=== PATIENT | male | born 1930 | race Caucasian/White ===

== ENCOUNTER 2016-10-16 09:59 | Inpatient (IN) | payer MEDICARE, BC ==
[~2016-10-16] VITALS: Ht 167.6 cm; Wt 79.3 kg
[2016-10-16] MEDS ORDERED: SALINE FLUSH 10 ML FLUSH PRN (10:15)
[2016-10-16] MEDS ORDERED: BISACODYL EC 5 MG TAB PO PRN (10:15)
[2016-10-16] MEDS ORDERED: ACETAMINOPHEN 325 MG TAB PO PRN ×2 (10:15→16:30)
[2016-10-16 11:00] VITALS: Ht 167.6 cm; Wt 79.3 kg
[2016-10-16] MEDS: PANTOPRAZOLE 40 MG TAB PO SCH (11:00)
[2016-10-16 11:01] VITALS: BP_SYST 135; RESP 18; TEMP 97.8
[2016-10-16] MEDS ORDERED: METOPROLOL XL 25 MG TAB PO SCH ×2 (11:15→21:00)
[2016-10-16 16:34] VITALS: BP_SYST 133; TEMP 97.9
[2016-10-16 16:35] VITALS: RESP 20
[2016-10-16 19:53] VITALS: BP_SYST 134; RESP 17; TEMP 97.7
[2016-10-16] MEDS: METHYLPRED SOD SUCC 40 MG VIAL IV SCH (19:58)
[2016-10-16] MEDS: SALINE FLUSH 10 ML FLUSH SCH (19:58)
[2016-10-16] MEDS: PRAVASTATIN 40 MG TAB PO SCH (20:23)
[2016-10-16] MEDS: TAMSULOSIN 0.4 MG CAP PO SCH (20:23)
[2016-10-16] MEDS ORDERED: QUEtiapine 25 MG TAB PO SCH (21:00)
[2016-10-16 23:27] VITALS: BP_SYST 113; RESP 17; TEMP 98
[2016-10-17 03:48] VITALS: BP_SYST 97; RESP 18; TEMP 98
[2016-10-17] MEDS: OMNIPAQUE 240 MG/ML, 50 ML PO SCH ×2 (04:04→06:02)
[2016-10-17] MEDS: SODIUM CHLORIDE 0.9% FLUSH BAG 500 ML IV SCH (06:00)
[2016-10-17] MEDS: PANTOPRAZOLE 40 MG TAB PO SCH (06:01)
[2016-10-17 07:34] VITALS: BP_SYST 120; RESP 18; TEMP 97.2
[2016-10-17] MEDS ORDERED: OPTIRAY 350 100 ML VIAL HMH IV ONE (08:39)
[2016-10-17] MEDS: SALINE FLUSH 10 ML FLUSH SCH ×2 (09:00→21:05)
[2016-10-17] MEDS ORDERED: METOPROLOL XL 25 MG TAB PO SCH (09:00)
[2016-10-17] MEDS: METHYLPRED SOD SUCC 40 MG VIAL IV SCH (09:00)
[2016-10-17] MEDS: PYRIDOXINE HCL 50 MG TAB PO SCH (09:14)
[2016-10-17] MEDS: ASPIRIN EC 325 MG TAB PO SCH (09:14)
[2016-10-17] MEDS: CYANOCOBALAMIN 100 MCG TAB PO SCH (09:14)
[2016-10-17] MEDS ORDERED: GLUCAGON 1 MG VIAL IM PRN (09:40)
[2016-10-17] MEDS ORDERED: DEXTROSE 50% SYRINGE 50 ML IV PRN (09:40)
[2016-10-17] MEDS: LISINOPRIL 5 MG TAB PO SCH (09:51)
[2016-10-17 11:44] VITALS: BP_SYST 131; RESP 18; TEMP 97.5
[2016-10-17 15:52] VITALS: BP_SYST 112; RESP 18; TEMP 97.7
[2016-10-17 20:15] VITALS: BP_SYST 115; RESP 18; TEMP 97.5
[2016-10-17] MEDS ORDERED: QUEtiapine 25 MG TAB PO SCH (21:00)
[2016-10-17] MEDS: PRAVASTATIN 40 MG TAB PO SCH (21:05)
[2016-10-17] MEDS: APIXABAN 2.5 MG TAB PO SCH (21:05)
[2016-10-17] MEDS: SOTALOL HCL 80 MG TAB PO SCH (21:05)
[2016-10-17] MEDS: TAMSULOSIN 0.4 MG CAP PO SCH (21:05)
[2016-10-17 23:46] VITALS: BP_SYST 119; RESP 18; TEMP 97.6
[2016-10-18] MEDS: SODIUM CHLORIDE 0.9% FLUSH BAG 500 ML IV SCH (00:48)
[2016-10-18 05:30] VITALS: BP_SYST 115; RESP 18; TEMP 97.8
[2016-10-18] MEDS: PANTOPRAZOLE 40 MG TAB PO SCH (06:35)
[2016-10-18 07:29] VITALS: BP_SYST 123; RESP 18; TEMP 97.6
[2016-10-18] MEDS ORDERED: MISSING DOSE XX ONE (08:30)
[2016-10-18] MEDS: APIXABAN 2.5 MG TAB PO SCH ×2 (09:37→21:08)
[2016-10-18] MEDS: CYANOCOBALAMIN 100 MCG TAB PO SCH (09:37)
[2016-10-18] MEDS: LISINOPRIL 5 MG TAB PO SCH (09:37)
[2016-10-18] MEDS: SOTALOL HCL 80 MG TAB PO SCH ×2 (09:37→21:08)
[2016-10-18] MEDS: ASPIRIN EC 325 MG TAB PO SCH (09:37)
[2016-10-18] MEDS: PYRIDOXINE HCL 50 MG TAB PO SCH (09:37)
[2016-10-18] MEDS: METHYLPRED SOD SUCC 40 MG VIAL IV SCH ×3 (09:39→21:07)
[2016-10-18] MEDS: SALINE FLUSH 10 ML FLUSH SCH ×2 (09:43→21:07)
[2016-10-18 11:03] VITALS: BP_SYST 98; RESP 18; TEMP 97.4
[2016-10-18 16:04] VITALS: BP_SYST 108; RESP 18; TEMP 97.2
[2016-10-18 19:00] VITALS: BP_SYST 132; RESP 18; TEMP 97.5
[2016-10-18] MEDS: TAMSULOSIN 0.4 MG CAP PO SCH (21:08)
[2016-10-18] MEDS: PRAVASTATIN 40 MG TAB PO SCH (21:08)
[2016-10-18 23:51] VITALS: BP_SYST 129; BP_SYST 138; RESP 20; TEMP 97.6; TEMP 97.7
[2016-10-19 03:32] VITALS: BP_SYST 115; RESP 18; TEMP 97.8
[2016-10-19] MEDS: SODIUM CHLORIDE 0.9% FLUSH BAG 500 ML IV SCH (04:37)
[2016-10-19] MEDS: PANTOPRAZOLE 40 MG TAB PO SCH (06:01)
[2016-10-19] MEDS: METHYLPRED SOD SUCC 40 MG VIAL IV SCH ×2 (08:21→20:14)
[2016-10-19] MEDS: PYRIDOXINE HCL 50 MG TAB PO SCH (08:22)
[2016-10-19] MEDS: SOTALOL HCL 80 MG TAB PO SCH ×2 (08:22→20:14)
[2016-10-19] MEDS: APIXABAN 2.5 MG TAB PO SCH ×2 (08:22→20:14)
[2016-10-19] MEDS: LISINOPRIL 2.5 MG TAB PO SCH (08:23)
[2016-10-19] MEDS: CYANOCOBALAMIN 100 MCG TAB PO SCH (08:23)
[2016-10-19] MEDS: SALINE FLUSH 10 ML FLUSH SCH ×2 (08:24→22:37)
[2016-10-19] MEDS: ASPIRIN EC 81 MG TAB PO SCH (08:24)
[2016-10-19 08:25] VITALS: BP_SYST 139; RESP 17; TEMP 98
[2016-10-19 12:03] VITALS: BP_SYST 130; RESP 18; TEMP 97.5
[2016-10-19 16:56] VITALS: BP_SYST 150; RESP 19; TEMP 97.6
[2016-10-19 19:44] VITALS: BP_SYST 118; RESP 18; TEMP 97.6
[2016-10-19] MEDS: PRAVASTATIN 40 MG TAB PO SCH (20:14)
[2016-10-19] MEDS: TAMSULOSIN 0.4 MG CAP PO SCH (20:14)
[2016-10-19 22:53] VITALS: BP_SYST 91; RESP 18; TEMP 97.9
[2016-10-20] MEDS: SODIUM CHLORIDE 0.9% FLUSH BAG 500 ML IV SCH ×2 (01:29→19:32)
[2016-10-20 03:18] VITALS: BP_SYST 110; RESP 18; TEMP 97.7
[2016-10-20] MEDS: PANTOPRAZOLE 40 MG TAB PO SCH (06:23)
[2016-10-20] MEDS: SOTALOL HCL 80 MG TAB PO SCH ×2 (08:22→20:11)
[2016-10-20] MEDS: PYRIDOXINE HCL 50 MG TAB PO SCH (08:22)
[2016-10-20] MEDS: APIXABAN 2.5 MG TAB PO SCH ×2 (08:22→20:11)
[2016-10-20] MEDS: CYANOCOBALAMIN 100 MCG TAB PO SCH (08:22)
[2016-10-20] MEDS: METHYLPRED SOD SUCC 40 MG VIAL IV SCH ×2 (08:22→20:10)
[2016-10-20] MEDS: ASPIRIN EC 81 MG TAB PO SCH (08:22)
[2016-10-20] MEDS: SALINE FLUSH 10 ML FLUSH SCH ×2 (08:23→20:10)
[2016-10-20] MEDS: LISINOPRIL 2.5 MG TAB PO SCH (08:24)
[2016-10-20 08:29] VITALS: BP_SYST 134; RESP 20; TEMP 97.8
[2016-10-20 11:47] VITALS: BP_SYST 131; RESP 19; TEMP 98.5
[2016-10-20 16:05] VITALS: BP_SYST 123; RESP 20; TEMP 98.1
[2016-10-20 19:17] VITALS: BP_SYST 115; RESP 17; TEMP 98
[2016-10-20] MEDS: TAMSULOSIN 0.4 MG CAP PO SCH (20:11)
[2016-10-20] MEDS: PRAVASTATIN 40 MG TAB PO SCH (20:11)
[2016-10-20 23:21] VITALS: BP_SYST 123; RESP 18; TEMP 97.7
[2016-10-21] VITALS (9 sets, daily range): BP systolic 115–155; RESP 18–20; TEMP 97.5–98.2
[2016-10-21] MEDS: PANTOPRAZOLE 40 MG TAB PO SCH (06:28)
[2016-10-21] MEDS: SALINE FLUSH 10 ML FLUSH SCH ×2 (08:15→20:28)
[2016-10-21] MEDS: APIXABAN 2.5 MG TAB PO SCH ×2 (08:15→20:28)
[2016-10-21] MEDS: LISINOPRIL 2.5 MG TAB PO SCH (08:15)
[2016-10-21] MEDS: PYRIDOXINE HCL 50 MG TAB PO SCH (08:15)
[2016-10-21] MEDS: SOTALOL HCL 80 MG TAB PO SCH ×2 (08:15→20:28)
[2016-10-21] MEDS: METHYLPRED SOD SUCC 40 MG VIAL IV SCH ×2 (08:15→20:28)
[2016-10-21] MEDS: CYANOCOBALAMIN 100 MCG TAB PO SCH (08:16)
[2016-10-21] MEDS: PRAVASTATIN 40 MG TAB PO SCH (20:28)
[2016-10-21] MEDS: TAMSULOSIN 0.4 MG CAP PO SCH (20:28)
[2016-10-21] MEDS: SODIUM CHLORIDE 0.9% FLUSH BAG 500 ML IV SCH (23:27)
[2016-10-22 03:56] VITALS: BP_SYST 123; RESP 18; TEMP 97.8
[2016-10-22] MEDS: PANTOPRAZOLE 40 MG TAB PO SCH (06:24)
[2016-10-22 07:13] VITALS: BP_SYST 153; TEMP 98.6
[2016-10-22 07:14] VITALS: RESP 20
[2016-10-22] MEDS: SALINE FLUSH 10 ML FLUSH SCH (08:38)
[2016-10-22] MEDS: APIXABAN 2.5 MG TAB PO SCH (08:38)
[2016-10-22] MEDS: PYRIDOXINE HCL 50 MG TAB PO SCH (08:39)
[2016-10-22] MEDS: LISINOPRIL 2.5 MG TAB PO SCH (08:39)
[2016-10-22] MEDS: CYANOCOBALAMIN 100 MCG TAB PO SCH (08:39)
[2016-10-22] MEDS: SOTALOL HCL 80 MG TAB PO SCH (08:40)
[2016-10-22] MEDS ORDERED: PREDNISONE 20 MG TAB PO SCH (09:00)
[2016-10-22 10:57] VITALS: BP_SYST 153; RESP 20; TEMP 98.6
[2016-10-22 11:10] VITALS: BP_SYST 131; TEMP 97.3
[2016-10-22 11:12] VITALS: RESP 20
== END 2016-10-22 11:50 | disposition home or self-care (01) | DRG 813 ==
LOC: ENRESERVTM → ENRESERVDT → ENPENDDIS 10:20 → PCU2 10:20
PROVIDERS: ADMIT Internal Medicine; ATTEND Internal Medicine
DX: D69.6 Thrombocytopenia, unspecified (principal); I48.0 Paroxysmal atrial fibrillation; Z95.1 Presence of aortocoronary bypass graft; I08.3 Combined rheumatic disorders of mitral, aortic and tricuspid valves; I25.10 Atherosclerotic heart disease of native coronary artery without angina pectoris; Z86.73 Personal history of transient ischemic attack (TIA), and cerebral infarction without residual deficits; Z87.891 Personal history of nicotine dependence; I10 Essential (primary) hypertension; E78.5 Hyperlipidemia, unspecified; M10.9 Gout, unspecified; M19.90 Unspecified osteoarthritis, unspecified site; I25.5 Ischemic cardiomyopathy; N40.0 Benign prostatic hyperplasia without lower urinary tract symptoms
CPT/HCPCS: 70551; 71020; 74177; 80048; 80053; 80061; 81003; 82553; 82784; 82947; 83735; 83880; 84155; 84165; 84439; 84443; 84484; 84550; 85025; 85652; 86022; 86038; 86225; 86334; 86644; 86645; 86665; 93005; 93306; 93880